=== PATIENT | female | born 1970 | race Caucasian/White ===

== ENCOUNTER → 2020-05-19 11:42 | Outpatient (CLI) | payer OTHER, SELFPAY ==
[2019-01-04 11:35] VITALS: BMI 22.8
== END ==
PROVIDERS: PCP Student in an Organized Health Care Education/Training Program; Referring Provider Nurse Practitioner Family; Visit Provider Nurse Practitioner Family
DX: J06.9 Acute upper respiratory infection, unspecified (principal)
CPT/HCPCS: 87880

== ENCOUNTER → 2020-05-21 10:28 | Outpatient (CLI) | payer OTHER, SELFPAY ==
[2019-01-04 11:35] VITALS: BMI 22.8
== END ==
PROVIDERS: PCP Student in an Organized Health Care Education/Training Program; Visit Provider Nurse Practitioner Family
DX: Z11.59 Encounter for screening for other viral diseases (principal); J06.9 Acute upper respiratory infection, unspecified
CPT/HCPCS: 87635; 87804; G2023; U0003

== ENCOUNTER → 2020-11-09 | Outpatient (CLI) | payer OTHER, SELFPAY ==
[2019-01-04 11:35] VITALS: BMI 22.8
== END | disposition home or self-care (01) ==
LOC: LABSPEC 10:46
PROVIDERS: PCP Student in an Organized Health Care Education/Training Program; Referring Provider Nurse Practitioner Family; Visit Provider Nurse Practitioner Family
DX: U07.1 COVID-19 (principal)
CPT/HCPCS: 87635; C9803; U0003

== ENCOUNTER → 2024-11-29 | Outpatient (CLI) | payer OTHER, SELFPAY ==
--- NOTE | 2024-11-29 08:20 | RAD_ITS ---
STUDY: X-RAY - PELVIS AND RIGHT HIP REASON FOR EXAM: Female, 53 years old. RT HIP PAIN TECHNIQUE: 3 views of the pelvis and hip. COMPARISON: None. FINDINGS: There is a non-specific bowel gas pattern. Normal visualized soft tissue structures. Evidence of Essure devices in the fallopian tubes Normal bilateral iliac wings, sacroiliac joints and visualized sacrum. Normal bilateral superior and inferior pubic rami. Normal pubic symphysis. Normal bilateral ischial tuberosities. Normal visualized femoral head. Normal acetabulum. Normal hip joint. RAD/HIP, UNI W/ Pelvis 2-3 Views IMPRESSION: No demonstrated fracture or suspicious osseous lesion Electronically Signed: Elliot Pedersen MD at 10:54 EST ,
--- NOTE | 2024-11-29 08:20 | RAD_ITS ---
STUDY: X-RAY - LUMBAR SPINE REASON FOR EXAM: Female, 53 years old. Low back pain TECHNIQUE: 2 view(s) of the lumbar spine were obtained. COMPARISON: None FINDINGS: Normal lumbar lordosis. There is no substantial scoliosis. There is a normal alignment of the vertebrae. Normal vertebral bodies and endplates. Normal disc space heights. The soft tissue structures are unremarkable. RAD/Lumbar Spine 2 or 3 Views IMPRESSION: Normal x-ray examination of the lumbar spine. Electronically Signed: Elliot Pedersen MD at 10:53 EST ,
== END | disposition home or self-care (01) ==
LOC: RAD 08:09
PROVIDERS: PCP Student in an Organized Health Care Education/Training Program; Referring Provider Anesthesiology Pain Medicine; Visit Provider Anesthesiology Pain Medicine
DX: M51.369 Other intervertebral disc degeneration, lumbar region without mention of lumbar back pain or lower extremity pain (principal); M25.511 Pain in right shoulder
CPT/HCPCS: 72100; 73502

== ENCOUNTER 2025-03-23 08:00 | Outpatient (RCR) | payer OTHER, SELFPAY ==
--- NOTE | 2025-02-03 16:39 | HP.PTEVAL ---
Patient's Visit Information Visit Information Visit Information: TIANA FELIPE is a 54 year old F referred to Physical Therapy by Dr. Jose G Howard DO with a diagnosis of LBP. Date of Evaluation: 02/03/25 Physical Therapist: Dakota Paz, PT, ATC Visit Plan Frequency: 1x/Week Duration: 1 Week Plan: Issue and instruct pt in HEP of core strengthening ex's extension based. Then follow up if needed in one month Subjective Subjective: Pt reports having LBP and R hip pain for a few years. 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 Pt reports she gets increased pain with sitting. Pt notes she has been treated for this pain by a chiropractor and pain medicine doctor over this time span. Pt reports she had this same pain in her L hip in 2019. Pt reports she had a recent L/S injection which has helped her pain some. Pt reports she has been kicked, thrown off her horse, and tramped on in the past. Pt reports she has put off this pain for a long time secondary to wanting to continue with her competitive horse riding. Pt reports intolerance to driving her car secondary to LBP. Pt notes that standing and ambulating decreases her pain. Pt reports recent x-rays of hip and LBP with came back clear. Pt reports intermittent R LE radiculopathy that extends into her R glute and hamstring region. 2/10 pain while sitting here at rest, 8/10 pain at worst. No sleep difficulty at this time. Pain LBP: Pain Intensity (Out of 10): 2 Pain Intensity Range: 8 Objective Objective: Neuro: B LE sensation is WNL to light touch MMT: B LE's are 5/5 throughout and equal ROM: Minimal limitation with extension. All other ranges are WNL Repeated movements: RFIS 10x3 NE, [place] 10x2 better. Prone prop progression better. REIL 10x2 better Balance/Special Test Scores Lower Extremity Functional Score: 77 Goals Goal 1:: I with HEP in 1 visit Goal Time Frame: 1 Week Rehabilitation Potential Physical Therapy Diagnosis: Pt has LBP and R LE radiculopathy secondary to L/S disc derangement Rehabilitation Potential: Good Anticipated Interventions Patient/Client Instruction: Educate patient on: Condition and Plan of Care For the Purpose of:: To improve self management Therapeutic Exercise to Include: Strength training, Endurance training, Body mechanics, Postural training, Dynamic Lumbar Stabilization and Gertrudis Exercises For the Purpose of:: To decrease pain, To increase ROM and To improve muscle performance and motor function Text: Thank you for the opportunity to evaluate your patient. For Medicare and Medicare HMO plans, please review the plan of care and approve it. It will need to be FAXED BACK to us at [phone] for Medicare purposes. For Medicare only, by signing this I certify the plan of care. Please let me know if there are questions or concerns regarding this plan of care. Physician Signature: Date:
--- NOTE | 2025-03-23 09:18 | HP.PTDCSUM ---
Discharge Summary D/C summary: It has been my pleasure to treat TIANA FELIPE referred by Dr. Jose G Howard DO, with the diagnosis of LBP for a total of 3 visit(s). Discharge Date: Please see the following information for a summary of their discharge status. Subjective Subjective: Its been a roller coaster. Good days and bad days Pain LBP: Pain Intensity (Out of 10): 2 Objective Objective/Function: L hip pain ranges from 2-8/10 Pt is now I with HEP Goals Goal 1:: I with HEP in 1 visit Goal Progress: Goal Met Plan Plan: Discharge to HEP D/C Information d/c sentence: If there are questions or concerns regarding this patient's physical therapy, please feel free to call me at [phone]. Thank you for the referral of this patient. Sincerely, Dakota Paz, PT, ATC Balance/Gait/Functional tests Balance/Special Test Scores Lower Extremity Functional Score: 77
== END 2025-03-23 19:00 | disposition home or self-care (01) ==
LOC: PT 08:00
PROVIDERS: PCP Student in an Organized Health Care Education/Training Program; Referring Provider Orthopaedic Surgery; Visit Provider Orthopaedic Surgery
DX: M70.71 Other bursitis of hip, right hip (principal)
CPT/HCPCS: 97110; 97161; 97530